=== PATIENT | female | born 1975 | race African-American/Black ===

== ENCOUNTER 2018-12-06 13:16 | Emergency (ER) | payer OTHER ==
[2018-12-06 13:40] VITALS: BP 137/70; PULSE 82; TEMP 98.9; BMI 30.7
[2018-12-06] MEDS ORDERED: KETOROLAC TROMETHAMINE 60 MG/2 ML VIAL ONE (14:27)
[2018-12-06] MEDS ORDERED: CYCLOBENZAPRINE HCL 10 MG TABLET (FP) ONE (14:27)
[2018-12-06] MEDS ORDERED: CYCLOBENZAPRINE HCL 10 MG TABLET (FP) PO ONE (14:29)
[2018-12-06] MEDS ORDERED: KETOROLAC TROMETHAMINE 60 MG/2 ML VIAL IM ONE (14:29)
--- NOTE | 2018-12-06 14:34 | PDOC ---
History of Present Illness - General Chief Complaint: Back Pain Stated Complaint: BACK PAINS Time Seen by Provider: 12/06/18 13:56 History Source: Patient Exam Limitations: No Limitations - History of Present Illness Initial Comments: 12/06/18 14:46 Patient states yesterday went to the gym and performed her typical workout with an aggressive aerobic activities including rowing, felt a slight twinge before going to bed last night but woke up this morning with significant and severe low back strain. States spasm is primarily the left eye waist and extending into buttocks and down the posterior aspect of leg. Has no history of significant back injury, no fever, no problems with urine or bowels. 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 Occurred: reports: yesterday Severity: reports: moderate Pain Location: reports: back Method of Injury: Yes: unknown Modifying Factors: improves with: cold therapy Loss of Consciousness: no loss of consciousness Associated Symptoms (Fall): denies symptoms Past History - Travel Traveled outside of the country in the last 30 days: No Close contact w/someone who was outside of country & ill: No - Past Medical History Allergies/Adverse Reactions: Allergies Allergy/AdvReac Type Severity Reaction Status Date / Time iodine Allergy Verified 12/06/18 13:40 Penicillins Allergy Verified 12/06/18 13:40 SEAFOOD Allergy Uncoded 12/06/18 13:40 Home Medications: Ambulatory Orders Cyclobenzaprine HCl 10 mg PO Q8H PRN #14 tablet 12/06/18 Ibuprofen [Motrin -] 600 mg PO TID 12/06/18 Naproxen [Naprosyn -] 500 mg PO BID #30 tablet 12/06/18 COPD: No - Suicide/Smoking/Psychosocial Hx Smoking History: Never smoked Have you smoked in the past 12 months: No Information on smoking cessation initiated: No Hx Alcohol Use: No Drug/Substance Use Hx: No Review of Systems - Review of Systems Able to Perform ROS?: Yes Is the patient limited U[place]bek proficient: Yes Constitutional: Yes: Symptoms Reported, See HPI, Malaise. No: Fever, Loss of Appetite HEENTM: Yes: See HPI. No: Symptoms Reported Respiratory: Yes: See HPI. No: Symptoms reported Musculoskeletal: Yes: Symptoms Reported, See HPI, Back Pain, Muscle Pain, Muscle Weakness Integumentary: Yes: See HPI. No: Symptoms Reported All Other Systems: Reviewed and Negative *Physical Exam - Vital Signs Last Vital Signs Temp Pulse Resp BP Pulse Ox 98.9 F 82 18 137/70 100 12/06/18 13:37 12/06/18 13:37 12/06/18 13:37 12/06/18 13:37 12/06/18 13:37 - Physical Exam General Appearance: Yes: Nourished, Appropriately Dressed, Apparent Distress, Mild Distress, Moderate Distress HEENT: positive: QUINTON, Normal ENT Inspection, TMs Normal, Pharynx Normal Neck: positive: Supple. negative: Tender, Lymphadenopathy (R) Respiratory/Chest: positive: Lungs Clear Gastrointestinal/Abdominal: positive: Soft. negative: Tender Musculoskeletal: positive: Normal Inspection, Muscle Spasm (affable spasm and significant tenderness to the left paravertebral spinous muscles along L2 through for with radiation into the left gluteus. No bone tenderness crepitus or step-offs. Right side is without spasm palpable. Neurovascular intact to foot ). negative: CVA Tenderness Extremity: positive: Normal Inspection. 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 NML intact, Fully Oriented, Alert, Normal Mood/ Affect, Normal Response, Motor Strength 5/5 Moderate Sedation - Procedure Monitoring Vital Signs: Procedure Monitoring Vital Signs Temperature 98.9 F 12/06/18 13:37 Pulse Rate 82 12/06/18 13:37 Respiratory Rate 18 12/06/18 13:37 Blood Pressure 137/70 12/06/18 13:37 O2 Sat by Pulse Oximetry (%) 100 12/06/18 13:37 Progress Note - Progress Note Progress Note: Back strain, will treat with NSAIDs and cyclobenzaprine *DC/Admit/Observation/Transfer Diagnosis at time of Disposition: Low back strain Qualifiers: Encounter type: initial encounter Qualified Code(s): S39.012A - Strain of muscle, fascia and tendon of lower back, initial encounter - Discharge Dispostion Disposition: HOME Condition at time of disposition: Stable Decision to Admit order: No - Referrals Referrals: Opal Vail MD [Primary Care Provider] - - Patient Instructions Printed Discharge Instructions: DI for Back Strain or Sprain Additional Instructions: Rest, no heavy lifting or exercise until pain is resolved Hot soaks to neck and low back as often as possible/hot showers or Jacuzzis No massage or therapy until spasm is gone Continue Naprosyn 500 mg tablet, 1 tablet every 8 hours for the next 3 days then as needed for pain and swelling Cyclobenzaprine 1-10mg every 8 hours as needed for spasm If not significant improvement within 24 hours with medication and rest regime, followup with private physician for change in medications and /or therapy. - Post Discharge Activity Forms/Work/School Notes: Back to Work
== END 2018-12-06 14:56 | disposition home or self-care (01) ==
LOC: JERFT 13:16 → JER 13:16 → JERFT 14:56
PROC: 3E0233Z Introduction of Anti-inflammatory into Muscle, Percutaneous Approach (ICD-10-PCS; principal; 2018-12-06)
DX: S39.012A Strain of muscle, fascia and tendon of lower back, initial encounter (principal); X50.0XXA Overexertion from strenuous movement or load, initial encounter; Y93.B9 Activity, other involving muscle strengthening exercises; Y92.39 Other specified sports and athletic area as the place of occurrence of the external cause; Y99.8 Other external cause status
CPT/HCPCS: 99281-25